=== PATIENT | male | born 1955 | race Caucasian/White ===

== ENCOUNTER 2020-03-21 08:00 | Outpatient (REF) | payer BC, SELFPAY | END 2020-03-21 08:01 | disposition home or self-care (01) | LOC: HO.MDS 08:00 | PROVIDERS: PCP Internal Medicine; Visit Provider Internal Medicine | DX: K51.90 Ulcerative colitis, unspecified, without complications (principal) | CPT/HCPCS: 96413; 96415; J1745 ==

== ENCOUNTER 2020-04-24 13:00 | Emergency (ER) | payer BC, SELFPAY ==
[2020-04-24 13:37] VITALS: BP 164/92; PULSE 82; RESP 18; TEMP 36.8; O2SAT 97; BMI 25.0
--- NOTE | 2020-04-24 13:46 | CT_ITS ---
EXAMINATION: CT HEAD WITHOUT CONTRAST CLINICAL INFORMATION: AMS. Head trauma. COMPARISON: None TECHNIQUE: Contiguous axial imaging was performed from the skull base to vertex without intravenous administration of contrast. This CT examination was performed using dose optimization techniques as appropriate, variously including the following: *Automated exposure control *Adjustment of mA and/or kV according to patient size (this includes techniques or standardized protocols for targeted exams where dose is matched to indication/reason for exam; i.e. extremities or head) *Use of iterative reconstruction technique DLP: 786 mGy-cm FINDINGS: Within the left temporal lobe there is a 3.8 x 3.5 x 4.1 cm mass with large amount of vasogenic edema surrounding it and extending into the parietal lobe. There is subfalcine herniation to the right with midline structure shift of 5 mm. There is effacement of sulci and cisterns within the left hemisphere. There is some mild left uncal subtentorial herniation. No intracranial hemorrhage is identified. Paranasal sinuses and mastoid air cells unremarkable. 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 This critical result was discussed with Ingrid Maldonado at 2:30 PM on April 24, 2020 and it was ascertained that the content and urgency of the report was understood at the time of direct communication.
--- NOTE | 2020-04-24 13:59 | ECG_ITS ---
Test Reason : STROKE Blood Pressure : / mmHG Vent. Rate : 075 BPM Atrial Rate : 075 BPM P-R Int : 118 ms QRS Dur : 090 ms QT Int : 414 ms P-R-T Axes : 039 008 076 degrees QTc Int : 462 ms Normal sinus rhythm Normal ECG No previous ECGs available Referred By: Ingrid Maldonado Electronically Signed By:YANET CRUZ MD
--- NOTE | 2020-04-24 13:59 | XR_ITS ---
EXAMINATION: XR CHEST CLINICAL INFORMATION: Altered mental status COMPARISON: Chest radiographs 07/02/2016 TECHNIQUE: Portable upright AP view of the chest was obtained. FINDINGS: The lungs are clear. The vascularity is normal. The costophrenic sulci are well-defined. The heart is normal in size. Tapering at the cardiac apex is similar to prior exam and consistent with areolar tissue. The hilar and mediastinal contours and bony structures are unremarkable. XR/XR chest 1V IMPRESSION: Unremarkable examination.
--- NOTE | 2020-04-24 14:02 | ED_ITS ---
HPI - Altered Mental Status General Chief Complaint: Altered Mental Status Stated Complaint: confused hit head.work related Time Seen by Provider: 04/24/20 13:46 Source: patient Mode of arrival: ambulatory History of Present Illness HPI narrative: 64-year-old male with a past medical history of Ulcerative Colitis on Remicade presenting to ED complaining left-sided headache and increased confusion x4 days s/p hitting head at work. Patient does not quite remember incident, admits to hitting head on a machine, questionable LOC, with increased lethargy since incident. Reports does not remember his name/passwords, or locker number, which is very abnormal for him. 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 Admits to associated left-sided neck pain. Denies vision changes, nausea/vomiting, CP/SOB History limited due to confusion MD complaint: altered mental status Onset (ago): day(s) Related Data Allergies Allergy/AdvReac Type Severity Reaction Status Date / Time ceftriaxone Allergy Unknown facial Verified 04/21/20 08:04 swelling Iodinated Contrast Media Allergy Unknown facial Verified 04/21/20 08:04 swelling piperacillin [Zosyn] Allergy Unknown hives Verified 04/21/20 08:04 tazobactam [Zosyn] Allergy Unknown hives Verified 04/21/20 08:04 Review of Systems Review of Systems: Constitutional: No Weight loss, No Fever, No Chills ENT/Mouth: No Hearing loss, +L Ear Pain, +L sided facial pain Cardiovascular: No Chest Pain, No SOB Respiratory: No Cough, No Sputum, No Wheezing Skin: No Skin Lesions, No rash Neuro: No Weakness, No Numbness, Unknown Loss of Consciousness, + Headache, +confusion Neurologic: Reports confusion Psychiatric: Psychiatric: Reports confusion [facility] Past Medical History Attestation statement: The following information was validated with the patient. Medical History (Updated 04/24/20 @ 14:41 by ROSSI Dutta) Headache Memory loss Surgical History History of arthroscopy of right knee History of colonoscopy History of hernia repair Family History Family History Father Lung cancer Mother Myocardial infarction Brother No problems noted. Social History Social History Smoking Status: Never smoker Advance Directives: No Advance Directives Information Provided: Yes Physical Exam Vital Signs: Vital Signs: Last Vital Signs Temp 98.3 F 04/24/20 13:37 Pulse 82 04/24/20 13:37 Resp 18 04/24/20 13:37 BP 164/92 H 04/24/20 13:37 Pulse Ox 97 04/24/20 13:37 Body Mass Index 25.0 Const: General: cooperative, healthy appearing and confusion Orientation/consciousness: oriented to person, oriented to place and confusion Limitations: no limitations HENMT: Head: Yes normal to inspection Ears: hearing grossly normal bilaterally and TM's normal bilaterally General nose exam: Normal external nose present Face and sinus: Yes normal facial exam Mouth: Normal oral and palatal mucosa present Throat: Yes posterior oropharynx normal Eyes: General: appearance normal, both eyes and all related structures Pupils: Equal, round and reactive pupils present EOM: EOMs intact bilaterally Neck: Neck: Yes normal visual inspection and Yes no meningeal signs Resp: Effort & Inspection: normal respiratory effort Cardio: Rate: regular rate GI: Inspection: Yes normal to inspection Palpation (GI): Soft to palpation, nontender, no guarding and not rigid Skin: Rashes: no rashes Wounds: no wounds Neuro: General: oriented to person, oriented to place, gait normal, tone normal, moves all extremities, no meningeal signs, no focal motor deficits, CN's II-XI intact bilaterally and confusion Cranial nerves: Yes Equal, round and reactive pupils present Gait exam (Neuro): Normal gait present Motor exam (neuro): 5/5 motor strength present throughout Extrem: General: Yes normal to inspection NIH Stroke Scale Level of Consciousness: Alert Level of Consciousness Questions: Answers one question correctly Level of Consciousness Commands: Performs both tasks correctly Best Gaze: Normal Visual: No visual loss Facial Palsy: Normal Motor Arm (Right): No drift Motor Arm (Left): No drift Motor Leg (Right): No drift Motor Leg (Left): No drift Limb Ataxia: Absent Sensory: Normal Best Language: No aphasia Dysarthia: Normal Extinction and Inattention: No abnormality Score: 1 Course Course Course Narrative: -stat head CT showing right temporal mass with edema and midline shift, and impending uncal herniation>> BC transfer Line paged -Spoke to [facility] neurosurgery ROSSI Faustin recommended in 10 IV Decadron, then 4 mg q.6 hours. Patient will be directly admitted to [facility] hospitalist team. -Neuro surgery reccs: Brain MRI with and without contrast, brain lab protocol, chest/abdomen/pelvis CT to find primary source, head of bed greater than 30?, stat head CT for acute decline or altered exam -1450--spoke to from the hospitalist team, accepting attending physician -10 mg IV Decadron given in the ED, HOB >30 degrees, and will obtain rapid COVID prior to transfer MDM - Altered Mental Status MDM Narrative Medical decision making narrative: 64-year-old male with a past medical history of Ulcerative Colitis on Remicade presenting to ED complaining left-sided headache and increased confusion x4 days s/p hitting head at work. On exam VS as, NAD, confused, A&O x2, no focal deficits. Concern for subdural vs mass or ICH. R/o metabolic/infectious etiology Plan: EKG, labs, STAT head CT, UA Lab Data Result diagrams: 04/24/20 14:24 04/24/20 14:24 Labs: Lab Results 04/24/20 04/24/20 Range/Units 14:24 14:26 WBC 8.7 (4.8-10.8) X10*3/uL RBC 4.57 L (4.60-5.80) X10*6/uL Hgb 13.6 L (14.0-18.0) g/dl Hct 40.9 L (42-52) % MCV 89.5 (80-98) fL MCH 29.8 (27.0-33.0) pg MCHC 33.3 (31.0-36.0) g/dl RDW 13.1 (11.0-16.0) % Plt Count 253 (160-400) X10*3/uL MPV 9.5 (9.4-12.4) fL Immature Gran % (Auto) 0.2 (0.0-0.4) % Neut % (Auto) 80.1 H (45-73) % Lymph % (Auto) 13.5 L (20-40) % [place] % (Auto) 5.3 (2-11) % Eos % (Auto) 0.7 (0-4) % Baso % (Auto) 0.2 (0-2) % Lymph # (Auto) 1.2 (1.2-4.9) X10*3/uL [place] # (Auto) 0.5 (0.1-1.2) X10*3/uL Eos # (Auto) 0.1 (0.0-0.4) X10*3/uL Baso # (Auto) 0.0 (0.0-0.2) X10*3/uL Abs Immat Gran (auto) 0.02 (0.00-0.03) X10*3/uL Absolute Neuts (auto) 7.0 (2.0-8.3) X10*3/uL Absolute Nucleated RBC 0.000 (0.0-0.012) X10*3/uL Nucleated RBC % (auto) 0.0 (0.0-0.2) /100WBC Ammonia 34 (13-55) umol/L Discharge Plan Discharge Clinical Impression: Brain mass Patient Disposition: [facility]
[2020-04-24] MEDS: dexAMETHasone sod phosphate 4 MG/ML VIAL 6 MG IVPUSH (14:17)
[2020-04-24] MEDS: dexAMETHasone sod phosphate 4 MG/ML VIAL IVPUSH (14:38)
[2020-04-24 14:45] LABS: Basophils Percent Auto 0.2 % (0-2); Eosinophils Absolute Auto 0.1 X10*3/uL (0.0-0.4); Eosinophils Percent Auto 0.7 % (0-4); Hematocrit 40.9 % (42-52); Hemoglobin 13.6 g/dl (14.0-18.0); Imm Gran Abs Auto 0.02 X10*3/uL (0.00-0.03); Imm Gran Pct Auto 0.2 % (0.0-0.4); Lymphocytes Absolute Auto 1.2 X10*3/uL (1.2-4.9); Lymphocytes Percent Auto 13.5 % (20-40); Mean Corpuscular HGB Conc 33.3 g/dl (31.0-36.0); Mean Corpuscular Hemoglobin 29.8 pg (27.0-33.0); Mean Corpuscular Volume 89.5 fL (80-98); Mean Platelet Volume 9.5 fL (9.4-12.4); Monocytes Absolute Auto 0.5 X10*3/uL (0.1-1.2); Monocytes Percent Auto 5.3 % (2-11); Neutrophils Percent Auto 80.1 % (45-73); Platelet Count 253 X10*3/uL (160-400); Red Blood Count 4.57 X10*6/uL (4.60-5.80); Red Cell Distribution Width 13.1 % (11.0-16.0); White Blood Count 8.7 X10*3/uL (4.8-10.8)
[2020-04-24 14:46] LABS: MANUAL DIFF FLAG NO
[2020-04-24 14:50] LABS: Ammonia 34 umol/L (13-55)
[2020-04-24 14:59] LABS: Prothrombin Time 12.4 SEC (10.8-13.0)
[2020-04-24 15:02] LABS: Partial Thromboplastin Time 40.2 SEC (24.1-38.0)
[2020-04-24 15:06] LABS: Alanine Aminotransferase 16 U/L (0-40); Alkaline Phosphatase 76 U/L (39-117); Anion Gap 13 (12-20); Aspartate Amino Transferase 16 U/L (5-37); Bilirubin Direct 0.2 mg/dL (0.0-0.5); Bilirubin Total 0.6 mg/dL (0.0-1.0); Blood Urea Nitrogen 15 mg/dL (9-16); Calcium 8.6 mg/dL (8.4-10.2); Carbon Dioxide 25 mmol/L (22-29); Chloride 104 mmol/L (96-108); Creatinine Clr Calc Pharmacy 111.3; Estimated Glomerular Filt Rate > 60; Glucose Random 175 mg/dL (60-115); Magnesium 2.1 mg/dL (1.6-2.6); Potassium 3.6 mmol/l (3.3-5.1); Sodium 138 mmol/L (135-145)
--- NOTE | 2020-04-24 15:11 | PC.NURSE ---
call to [employer] for report
[2020-04-24 15:13] LABS: Troponin-I High Sensitivity 9.7 ng/L (<3.5-35.0)
--- NOTE | 2020-04-24 15:22 | PC.NURSE ---
report given to hari on calzada 5a
[2020-04-24 15:27] LABS: TSH reflex Free T4 0.89 mIU/mL (0.32-4.0)
[2020-04-24 15:33] LABS: IDNOW Serial# 9DD0AD1C
[2020-04-24 15:34] LABS: COVID-19 Test Negative (Negative)
[2020-04-24 15:56] LABS: Glucose Urine UA NEG (NEG); Leukocyte Esterase Urine NEG (NEG); Nitrite Urine NEG (NEG); Specific Gravity - Urine 1.015 (1.005-1.025); Urine Blood NEG (NEG); Urine Ketones NEG (NEG); Urine Protein NEG (NEG-TRACE)
[2020-04-24 15:59] LABS: Appearance Urine CLEAR; Color Urine YELLOW
[2020-04-24 16:12] VITALS: BP 184/118; PULSE 76; RESP 16; O2SAT 98
[2020-04-24 16:24] LABS: Amphetamine Screen Urine Not Detected (Not Detect); Barbiturates, Urine Not Detected (Not Detect); Benzodiazepines Screen Urine Not Detected (Not Detect); Cannabinoid Screen Urine Not Detected (Not Detect); Cocaine Screen Urine Not Detected (Not Detect); Opiate Screen Urine POSITIVE (Not Detect); Phencyclidine Screen Urine Not Detected (Not Detect)
== END 2020-04-24 16:29 | disposition short-term general hospital (02) ==
PROVIDERS: Physician Assistant; Emergency Provider Emergency Medicine
DX: G93.89 Other specified disorders of brain (principal); R41.3 Other amnesia; R41.0 Disorientation, unspecified; Z20.828 Contact with and (suspected) exposure to other viral communicable diseases
CPT/HCPCS: 36415; 70450; 71045; 80048; 80076; 80307; 81003; 82140; 83735; 84443; 84484; 85025; 85610; 85730; 87635; 93005; 96372; 99285; J1100

== ENCOUNTER 2020-06-10 16:00 | Outpatient (REF) | payer BC, SELFPAY | END 2020-06-11 07:31 | disposition home or self-care (01) | LOC: HO.MDS 16:00 | PROVIDERS: Visit Provider Internal Medicine | DX: K51.90 Ulcerative colitis, unspecified, without complications (principal) | CPT/HCPCS: 96413; 96415; J1745 ==

== ENCOUNTER 2021-07-22 09:39 | Outpatient (REF) | payer OTHER, SELFPAY ==
[2021-07-24 19:07] LABS: TS Negative Control Passed; TS Panel A 1; TS Panel B 0; TS Positive Control Passed; TSpotTB Negative (Negative)
== END 2021-07-22 09:40 | disposition home or self-care (01) ==
LOC: HO.LAB 09:39
PROVIDERS: Visit Provider Internal Medicine
DX: K51.00 Ulcerative (chronic) pancolitis without complications (principal)
CPT/HCPCS: 36415; 86481